=== PATIENT | male | born 1975 | race African-American/Black ===

== ENCOUNTER 2019-02-01 15:26 | Emergency (ER) | payer OTHER ==
[~2019-02-01] VITALS: Ht 170.2 cm; Wt 73.9 kg
[~2019-02-01 15:26] MED LIST: ADV500/50; ATIVAN PO; ATIVAN1 MG PO; CYMBALTA PO; DONN PO; DONNATAL PO; FENTANYL PO; FENTORA; PROTONIX40 MG PO; SIMBICORT INH; SYN75 PO; SYNTHROID0.075 MG PO; XOLAIR150 MG; ZOF4 PO; ZOFRAN4 M2 PO; [UNRECOGNIZED DRUG - OTHER]; [UNRECOGNIZED DRUG - OTHER] PO
[2019-02-01 15:35] VITALS: BP 154/106; Ht 170.2 cm; Wt 73.9 kg
[2019-02-01 16:31] LABS: BASOPHIL % 0.2 % (0-2); PLATELET COUNT 281 x10^3mcL (130-400); RED CELL DISTRIBUTION WIDTH 13.7 % (11.5-14.5)
[2019-02-01 17:16] LABS: CALCIUM 9.1 mg/dL (8.5-10.1); CARBON DIOXIDE 28.8 mmol/L (21-32); CHLORIDE SERUM 102 mmol/L (98-107); GFR1 > 60 mL/min; GLUCOSE SERUM 63 mg/dL (74-106); SODIUM SERUM 139 mmol/L (136-145)
[2019-02-01 17:21] LABS: ALBUMIN 3.8 g/dL (3.4-5.0); ALKALINE PHOSPHATASE 90 U/L (46-116); ALT/SGPT 20 U/L (16-63); AST/SGOT 16 U/L (15-37); BILIRUBIN TOTAL 0.36 mg/dL (0.20-1.00); TOTAL PROTEIN, SERUM 8.1 g/dL (6.4-8.2)
== END 2019-02-01 19:06 | disposition home or self-care (01) ==
LOC: ED 15:26
PROVIDERS: Emergency Medicine
DX: L03.113 Cellulitis of right upper limb (principal); J45.909 Unspecified asthma, uncomplicated; K21.9 Gastro-esophageal reflux disease without esophagitis; Z88.6 Allergy status to analgesic agent; Z88.8 Allergy status to other drugs, medicaments and biological substances
CPT/HCPCS: J3490; J7040; Q0092